=== PATIENT | female | born 1960 | race Caucasian/White ===

== ENCOUNTER 2024-08-20 12:30 | Emergency (ER) | payer MEDICAID ==
[~2024-08-20] VITALS: Ht 177.8 cm; Wt 77.3 kg
[~2024-08-20 12:30] MED LIST: BREX0.25 PO
[2024-08-20 12:41] VITALS: TEMP 98.1
[2024-08-20] MEDS ORDERED: RISP1TAB48 PO (12:44)
[2024-08-20] MEDS ORDERED: HYDR30CR39 TP (16:15)
[2024-08-20 16:29] VITALS: BP 129/69; PULSE 74; RESP 18; O2SAT 100
== END 2024-08-20 16:31 | disposition home or self-care (01) ==
LOC: EMS 12:39
DX: K64.4 Residual hemorrhoidal skin tags (principal); K59.00 Constipation, unspecified; Z79.899 Other long term (current) drug therapy
CPT/HCPCS: 99283; Z7502

== ENCOUNTER 2025-06-17 16:58 | Emergency (ER) | payer MEDICAID ==
[~2025-06-17] VITALS: Ht 175.3 cm; Wt 110.9 kg
[~2025-06-17 16:58] MED LIST changes: +HYDR30CR39 TP; +RISP1TAB48 PO
[2025-06-17 17:03] VITALS: BP 129/79; PULSE 93; RESP 18; TEMP 98.2; O2SAT 96
[2025-06-17] MEDS ORDERED: POLY17PO47 PO (17:07)
[2025-06-17] MEDS ORDERED: OLAN2.5T78 PO (17:07)
[2025-06-17] MEDS ORDERED: PSYL426P4 PO (17:30)
[2025-06-17] MEDS: MAGNESIUM CITRATE [LEMON] 300 ML ORAL SOLUTION PO ONE (20:31)
[2025-06-17] MEDS: BISACODYL 10 MG RECTAL RECTAL SUPPOSITORY PR ONE (20:32)
== END 2025-06-17 20:35 | disposition home or self-care (01) ==
LOC: EMS 16:58
DX: K59.00 Constipation, unspecified (principal); F25.0 Schizoaffective disorder, bipolar type; Z87.19 Personal history of other diseases of the digestive system
CPT/HCPCS: 99283

== ENCOUNTER 2025-06-23 13:42 | Emergency (ER) | payer MEDICAID ==
[~2025-06-23] VITALS: Ht 175.3 cm; Wt 110.9 kg
[~2025-06-23 13:42] MED LIST changes: -BREX0.25 PO; -HYDR30CR39 TP; +OLAN2.5T78 PO; +POLY17PO47 PO; +PSYL426P4 PO; -RISP1TAB48 PO
[2025-06-23 13:47] VITALS: BP 107/71; PULSE 82; RESP 18; TEMP 97.9; O2SAT 99
[2025-06-23] MEDS ORDERED: POLY119P3 PO (17:41)
== END 2025-06-23 18:05 | disposition home or self-care (01) ==
LOC: EMS 13:42
DX: K59.00 Constipation, unspecified (principal); F20.9 Schizophrenia, unspecified; F31.9 Bipolar disorder, unspecified; Z87.19 Personal history of other diseases of the digestive system
CPT/HCPCS: 74018; 99283